=== PATIENT | female | born 1940 | race Caucasian/White ===

== ENCOUNTER 2018-12-20 06:44 | Day surgery (SDC) | payer MEDICARE, BC ==
[~2018-12-20 06:44] MED LIST: Lactated Ringers 1,000 ML IV SCH; Sodium Chloride 0.9% 10 ML SDV IV PRN; Sodium Chloride 0.9% 10 ML Syringe FLUSH PRN; Sodium Chloride 0.9% 2.5 ML Syringe FLUSH PRN
[2018-12-20] MEDS ORDERED: Dexamethasone/Tobramycin 0.1-0.3% Ophth Oint 3.5 GM Tube ONE (07:21)
[2018-12-20] MEDS ORDERED: Bupivacaine 0.25%/EPINEPHrine 1:200,000 10 ML SDV ONE ×3 (07:21→09:05)
[2018-12-20] MEDS ORDERED: Tetracaine HCl/PF 0.5% 4 ML Bottle ONE (07:21)
[2018-12-20] MEDS ORDERED: Midazolam 1 MG/ML 2 ML SDV ONE ×2 (07:24→09:29)
[2018-12-20] MEDS ORDERED: fentaNYL 100 MCG/2 ML SDV ONE ×2 (07:24→09:31)
[2018-12-20] MEDS ORDERED: Propofol 200 MG/20 ML SDV ONE (07:24)
[2018-12-20] MEDS ORDERED: Lidocaine 2% 5 ML SDV ONE (07:24)
--- NOTE | 2018-12-20 07:32 | PCM.PREANE ---
Preanesthetic Assessment - Anesthesia/Transfusion/Family Hx Anesthesia History: Prior Anesthesia Without Reaction Family History of Anesthesia Reaction: No Transfusion History: No Prior Transfusion(s) - Review of Systems General: No Symptoms Pulmonary: No Symptoms Cardiovascular: No Symptoms Gastrointestinal: No Symptoms Neurological: Paresthesia (post chemotherapy peripheral neuropathy- uses gabipentin prn) - Physical Assessment NPO Status Date: 12/19/18 Height: 5 ft 7 in Weight: 79.379 kg ASA Class: 3 Mental Status: Alert & Oriented x3 Airway Class: Mallampati = 2 Dentition: Reports: Normal Dentition ROM/Head Extension: Full Lungs: Clear to Auscultation, Normal Respiratory Effort Cardiovascular: Regular Rate, Irregular Rhythm (prob sinus with ectopy, but with ausculatation cannot exclude afib with pseudonormalization ) - Allergies Allergies/Adverse Reactions: Allergies Allergy/AdvReac Type Severity Reaction Status Date / Time adhesive tape Allergy Rash Verified 12/15/18 08:44 - Blood Blood Available: No - Anesthesia Plan Pre-Op Medication Ordered: None - Acknowledgements Anesthesia Type Planned: MAC Pt an Appropriate Candidate for the Planned Anesthesia: Yes Alternatives and Risks of Anesthesia Discussed w Pt/Guardian: Yes Pt/Guardian Understands and Agrees with Anesthesia Plan: Yes Additional Comments: PMH: parox a fib, htn, hld, thyroid replacement, breast ca 0n L, PLAN: MAC with nasal canulae and FIO@ < 30% PreAnesthesia Questionnaire HEENT History: Reports: Other (See Below) Other HEENT History: wears glasses Cardiovascular History: Reports: Afib, Hypertension Respiratory History: Reports: None Gastrointestinal History: Reports: None Genitourinary History: Reports: None Musculoskeletal History: Reports: Fracture Other Musculoskeletal History: hx fx ankle Neurological History: Reports: Migraines, Neuropathy, Peripheral Other Neuro History: migraines in the past Psychiatric History: Reports: None Endocrine/Metabolic History: Reports: Hypothyroidism Other Endocrine/Metabolic History: "borderline diabetic" Hematologic History: Reports: Anticoagulation Therapy Immunologic History: Reports: None Oncologic (Cancer) History: Reports: Breast Dermatologic History: Reports: None - Past Surgical History Head Surgeries/Procedures: Reports: None HEENT Surgical History: Reports: None, Cataract Surgery, Tonsillectomy Cardiovascular Surgical History: Reports: None Respiratory Surgical History: Reports: None GI Surgical History: Reports: Appendectomy, Colonoscopy Female Surgical History: Reports: Breast Biopsy, Hysterectomy, Mastectomy Endocrine Surgical History: Reports: None Neurological Surgical History: Reports: None Musculoskeletal Surgical History: Reports: Knee Replacement Other Musculoskeletal Surgeries/Procedures:: hx left knee replacement Oncologic Surgical History: Reports: Mastectomy Other Oncologic Surgeries/Procedures: left mastectomy for lymph node bx Dermatological Surgical History: Reports: None - SUBSTANCE USE Smoking Status *Q: Never Smoker Recreational Drug Use History: No - HOME MEDS Home Medications: Home Meds Cholecalciferol (Vitamin D3) [Vitamin D3] 1,000 units PO DAILY 12/15/18 [History ] Gabapentin [Neurontin] 1 - 2 tab PO ASDIRECTED PRN 12/15/18 [History] Letrozole 2.5 mg PO DAILY 12/15/18 [History] Levothyroxine Sodium [Synthroid] 75 mcg PO DAILY 12/15/18 [History] Losartan/Hydrochlorothiazide [Hyzaar 100-25 Tablet] 1 tab PO DAILY 12/15/18 [ History] Metoprolol Succinate 25 mg PO DAILY 12/15/18 [History] Potassium Chloride 20 meq PO DAILY 12/15/18 [History] Warfarin [Coumadin] 5 mg PO ASDIRECTED 12/15/18 [History] amLODIPine Besylate [Norvasc] 2.5 mg PO DAILY 12/15/18 [History] - CURRENT (IN HOUSE) MEDS Current Meds: Current Medications Bupivacaine HCl/Epinephrine Bitart (Marcaine 0.25%/Epinephrine 1:200,000) 10 ml INJECT ONETIME ONE Stop: 12/20/18 08:01 Cefazolin Sodium/Dextrose 2 gm (/ Premix) 50 mls @ 100 mls/hr IV ONETIME ONE Stop: 12/20/18 08:29 Lactated Ringer's (Ringers, Lactated) 1,000 mls @ 125 mls/hr IV ASDIRECTED ALVINO Lactated Ringer's (Ringers, Lactated) 1,000 mls @ 125 mls/hr IV ASDIRECTED ALVINO Sodium Chloride (Saline Flush) 10 ml FLUSH ASDIRECTED PRN PRN Reason: Keep Vein Open Sodium Chloride (Saline Flush) 2.5 ml FLUSH ASDIRECTED PRN PRN Reason: Keep Vein Open Sodium Chloride (Normal Saline) 10 ml IV ASDIRECTED PRN PRN Reason: IV Use Tramadol HCl (Ultram) 50 mg PO Q4H PRN PRN Reason: Pain Discontinued Medications Bupivacaine HCl/Epinephrine Bitart (Marcaine 0.25%/Epinephrine 1:200,000) Confirm Administered Dose 10 ml .ROUTE .STK-MED ONE Stop: 12/20/18 07:22 Tetracaine HCl (Tetracaine 0.5% Steri-Unit Preeti) Confirm Administered Dose 4 ml .ROUTE .STK-MED ONE Stop: 12/20/18 07:22 Tobramycin/Dexamethasone (Tobradex Ophth Oint) Confirm Administered Dose 3.5 gm .ROUTE .STK-MED ONE Stop: 12/20/18 07:22
[2018-12-20] MEDS ORDERED: ceFAZolin 2 GM in Premix Bag 1 BAG IV ONE (08:00)
[2018-12-20] MEDS ORDERED: Bupivacaine 0.25%/EPINEPHrine 1:200,000 10 ML SDV INJECT ONE (08:00)
[2018-12-20] MEDS ORDERED: Lactated Ringers 1,000 ML IV SCH (08:00)
[2018-12-20] MEDS ORDERED: traMADol 50 MG Tab PO PRN (08:00)
[2018-12-20] MEDS ORDERED: ceFAZolin 1 GM Vial ONE (08:19)
[2018-12-20] MEDS ORDERED: Sodium Chloride 0.9% 20 ML ONE (08:19)
[2018-12-20] MEDS ORDERED: Mineral Oil/Petrolatum Ophth Oint 3.5 GM Tube ONE ×2 (08:29→09:30)
--- NOTE | 2018-12-20 10:32 | PCM48HPAN ---
Post Anesthesia Note - EVALUATION WITHIN 48HRS OF ANESTHETIC Vital Signs in Normal Range: Yes Patient Participated in Evaluation: Yes Respiratory Function Stable: Yes Airway Patent: Yes Cardiovascular Function Stable: Yes Hydration Status Stable: Yes Pain Control Satisfactory: Yes Nausea and Vomiting Control Satisfactory: Yes Mental Status Recovered: Yes Resp Rate: 16
--- NOTE | 2018-12-20 11:09 | PCM.POSTAN ---
POST ANESTHESIA ASSESSMENT - MENTAL STATUS Mental Status: Alert, Oriented - RESPIRATORY Respiratory Status: Respiratory Rate WNL, Airway Patent, O2 Saturation Stable - CARDIOVASCULAR CV Status: Pulse Rate WNL, Blood Pressure Stable - GASTROINTESTINAL GI Status: No Symptoms - POST OP HYDRATION Hydration Status: Adequate & Stable
--- NOTE | 2018-12-21 22:43 | PCM.OPNOTE ---
- General Post-Op/Procedure Note Date of Surgery/Procedure: 12/20/18 Operative Procedure(s): bilatearl brow lift for visual field compromise. 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
--- NOTE | 2018-12-22 23:25 | OR ---
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 POSTOPERATIVE DIAGNOSES: Bilateral brow ptosis and lower eyelid entropions. PROCEDURE: 1. Bilateral brow lift for visual field compromise. 2. Bilateral lower eyelid tarsal strip for entropion repair with removal of excess skin. PARTY DEMONSTRATOR: JESSIE Grover REASON FOR AND ROLE OF PARTY DEMONSTRATOR: Retraction, prepping, draping, positioning and closure assistance. ANESTHESIA: Local MAC. INDICATIONS: Ms. Jeffery is a 78-year-old female seen today in evaluation for her bilateral brow ptosis. She was sent to us as a referral by her eye doctor. She also has bilateral lower eyelid in-turning with entropion anytime she sharply closes her eyes. This causes irritation with the eyelashes. Risks and benefits of repair of the bilateral brow ptosis and the lower eyelid entropions were discussed with her, and she was in agreement to proceed. Risks were including but not limited to bleeding, infection, damage to underlying or overlying structures, possible need for future interventions, or possible scarring. PROCEDURE IN DETAIL: After informed consent was obtained and placed on the chart, the patient was brought to the operating theater and laid in the supine position. After adequate local MAC anesthesia was obtained, the area was prepped and draped, and a time-out was completed to confirm side and site. After adequate marking, the area was anesthetized with 0.25% Marcaine with epinephrine in a field block. Once adequate anesthesia, attention was then paid to the upper eyelids. An appropriate amount of excision was planned, and an elliptical direct brow lift was completed on both forehead just above the eyebrow to camouflage in one of her existing rhytids. Once adequately dissected and meticulous hemostasis was obtained after skin removal, skin was closed using deep 4-0 Monocryl stitch and a running 4-0 Monocryl for the skin. It was dressed with a Steri-Strip. Once adequately dressed, attention was then paid to the lower eyelid ectropion. Lateral canthotomy was made using a scissor after corneal protectors were placed. The lateral aspect of the tarsus was dissected and over an underlying skin removed with Bovie electrocautery and direct scissor excision. The tarsus was isolated, and attention was then paid to dissection of the lateral canthal area until direct bone exposure. Meticulous hemostasis was obtained, and two 4- 0 clear Prolene stitches were used in a [id number] fashion to place the lower eyelid tarsal strip in a more superior position. Attention was then paid to removal of the excess eyelid skin and a lateral skin incision to allow removal and tightening to prevent additional rolling in. This was completed bilaterally, and the skin was closed using 5-0 fast-absorbing gut stitches after a deep Monocryl stitch. Once completed, the wounds were dressed with Steri- Strips. The patient tolerated the procedure well, and all counts and needles were correct at the end of the case. FOLLOWUP INSTRUCTIONS: The patient will see us in clinic in 1 week or sooner if any problems, questions, or concerns. She was provided a prescription for TobraDex drops. HEKIMBERLYN / OWEN /[id number] MTDD
== END 2018-12-20 11:30 | disposition home or self-care (01) ==
LOC: MW.SDS 06:44
PROVIDERS: ATTEND Plastic Surgery
DX: H57.813 Brow ptosis, bilateral (principal); H02.032 Senile entropion of right lower eyelid; H02.035 Senile entropion of left lower eyelid; I48.2 Chronic atrial fibrillation; I10 Essential (primary) hypertension; E03.9 Hypothyroidism, unspecified; E78.5 Hyperlipidemia, unspecified; R73.03 Prediabetes; G62.9 Polyneuropathy, unspecified; Z79.01 Long term (current) use of anticoagulants; Z79.899 Other long term (current) drug therapy; Z91.048 Other nonmedicinal substance allergy status
CPT/HCPCS: 36415; 67900; 67924; 85610; J0690; J2001; J2250; J2704; J3010; J3490; J7120; A9270-GY